=== PATIENT | male | born 1975 | race Hispanic/Latino ===

== ENCOUNTER 2016-05-23 10:15 | Emergency (ER) | payer OTHER ==
[~2016-05-23] VITALS: Ht 193 cm; Wt 145.2 kg
[2016-05-23 10:40] VITALS: BP 140/88
--- NOTE | 2016-05-23 11:19 | ED INFLUENZA/URI COMPLAINT ---
History of Present Illness General Chief Complaint: General Adult Stated Complaint: FEVER,COUGH,CONGESTION,SOB Source: patient, old records Exam Limitations: no limitations Vital Signs & Intake/Output Vital Signs & Intake/Output Vital Signs Date Time Temp Pulse Resp B/P Pulse O2 O2 Flow FiO2 Ox Delivery Rate 05/23 1211 97 Room Air 05/23 1040 97.9 96 18 140/88 99 Room Air Allergies Coded Allergies: codeine (FEELS FUNNY 05/23/16) Reconcile Medications Albuterol Sulfate (Proair Hfa) 90 MCG HFA.AER.AD 2 PUF INH Q4-6 PRN PRN WHEEZING Aspirin (Ecotrin*) 325 MG TABLET.DR 1 TAB PO DAILY HEART HEALTH (Reported) Benzonatate (Tessalon Perle) 100 MG CAPSULE 1 CAP PO TID PRN COUGH Cefuroxime Axetil (Cefuroxime) 500 MG TABLET 1 TAB PO BID ANTIBIOTIC, INFECTION (Reported) Guaifenesin/Codeine Phosphate (Guaifenesin AC Cough Syrup) 100 MG-10 MG/5 ML LIQUID 5 ML PO Q4P PRN COUGH (Reported) Methylprednisolone. (Medrol) 4 MG TAB.DS.PK 1 DP PO AD REACTIVE AIRWAY 6 on day 1 then reduce by one tablet daily until gone Mometasone Furoate (Nasonex) 50 MCG SPRAY.PUMP 2 SPRAY NASB DAILY RHINITIS Multiple Vitamin (Multivitamins) 1 EACH TABLET 1 TAB PO DAILY SUPPLEMENT ( Reported) [place]-3 Fatty Acids/Fish Oil (Fish Oil 1,000 MG Capsule) 340 MG-1,000 MG CAPSULE 2 CAP PO DAILY SUPPLEMENT (Reported) Triage Note: PT COMPLAINSOF 2 WEEKS COUGH PRODUCTIVE OF YELLOW SPUTUM, PT IS ON ABT AT THIS TIME. ALSO COMPLAINS OF HIS EARS BEING CLOGGED AND FEELING LIKE HE IS OFF BALANCE. PT IS VERY ANXIOUS AT TRIAGE. COMPLAINS OF L SIDE ACHE IN HIS CHEST THAT IS INTERMITTANT ONLY WHEN HE COUGHS Triage Nurses Notes Reviewed? yes Onset: Gradual Duration: week(s): (2), better, constant Timing: recent history Severity: mild Severity Numbers: 4 No Modifying Factors: none Associated Symptoms: cough, dizziness, muscle aches, nasal congestion, sore throat HPI: 40-year-old male with no medical history presents to emergency room complaining of a two-week history of a cough of yellow sputum associated with rhinorrhea and congestion sore throat and feeling lightheaded from all of his coughing he states.. he has been on antibiotics and is taking his last dose today without improvement. He denies any associated chest pain however states that at times after coughing he feels as though he can't catch his breath. He does not smoke no history of COPD or asthma. He has not attempted taking any over the counter medications otherwise. There are no modifying factors or associated symptoms otherwise. Past History Travel History Traveled to [place] past 21 day No Medical History Any Pertinent Medical History? see below for history Neurological: NONE EENT: NONE Cardiovascular: hypertension Respiratory: NONE Gastrointestinal: NONE Hepatic: NONE Renal: NONE Musculoskeletal: NONE Psychiatric: NONE Endocrine: NONE Blood Disorders: NONE Cancer(s): NONE PROCESS CONTROLLER/Reproductive: NONE Surgical History Surgical History: non-contributory Psychosocial History What is your primary language Sammarinese Tobacco Use: Never used ETOH Use: denies use Illicit Drug Use: denies illicit drug use Family History Hx Contributory? No Review of Systems Review of Systems Constitutional: Reports: see HPI. All Other Systems: Reviewed and Negative Comments Review of systems: See HPI, All other systems negative. Constitutional, no chills no fever, no malaise HEENT: No visual changes sore throat congestion, no ear pain cardio: no chest pain, no palpitations Skin, no jaundice no rashes, no change in skin Respiratory: No dyspnea cough no sputum no hemoptysis GI: No nausea no vomiting, no diarrhea, no bloating/constipation : No dysuria No hematuria, no frequency, Muscle skeletal: No joint pain, no back pain, no neck pain, Neurologic: no headache Psych: No stress Heme/endocrine: No bruising no bleeding Immunology: No lymphadenopathy Physical Exam Physical Exam General Appearance: well developed/nourished, no apparent distress, alert, awake Ears, Nose, Throat: normal ENT inspection, moist mucous membrane, hearing grossly normal, Tympanic normal, pharynx normal Comments: Well-developed well-nourished person in no acute distress Head/Face: Atraumatic, no maxillary/frontal sinus tenderness, no facial swelling Eyes: PERRL, EOMI, no conjunctival injection. No nystagmus Ear:External auditory canal and Tympanic membranes clear, no erythema, no FB. Nose: atraumatic.Normal inspection: No bleeding, no septal hematoma Throat: Moist mucous membranes.Pharynx normal. No pharyngeal erythema/exudate seen. No stridor/drooling or assymetry. No swelling or edema. Neck: Supple, no lymphadenopathy, FROM Back: Nontender, no CVA tenderness. Full range of motion Cardiovascular: Regular rate and rhythms no murmurs rubs or gallops, normal JVP Respiratory: Chest nontender.There were no bony deformities, no asymmetry. No respiratory distress. Patient speaking in full complete sentences. Breath sounds clear to auscultation bilaterally: NO W/R/R Abdomen: Soft, nontender nondistended, no appreciable organomegaly. Normal bowel sounds. No rebound/guarding, No appreciable enlargement of the abdominal aorta, No ascites. Extremity: No edema, full range of motion of extremities, normal and equal pulses bilaterally, 5 out of 5 strength noted to bilateral upper and lower extremities Neuro: Alert oriented x3, motor sensory normal, cranial nerves II through XII grossly intact. There were no obvious focal neurologic abnormalities. Skin: No appreciable rash on exposed skin, skin is warm and dry. Psych: Mood and affect is normal, memory and judgment is normal. Core Measures Severe Sepsis Present: No Septic Shock Present: No Progress Differential Diagnosis: influenza, otitis, pneumonia, sinusitis, bronchitis, uri Plan of Care: Patient clinically appears well speaking in full complete sentences lungs are clear to auscultation. I discussed with him his chest x-ray findings need for supportive care advised to continue and finish antibiotic course he is currently on folic primary care answer all his questions and feels comfortable with this plan Diagnostic Imaging: Viewed by Me: Radiology Read. Discussed w/RAD: Radiology Read. Radiology Impression: PATIENT: MALACHI ROBERTSON PRESENT AGE: 40 PATIENT ACCOUNT NO: [id number] : 75 LOCATION: [facility] ORDERING PHYSICIAN: ANALILIA BENITES SERVICE DATE: 05/23/16 EXAM TYPE: RAD - XRY- CHEST XRAY, PA AND LATERAL EXAMINATION: XR CHEST CLINICAL INFORMATION: Cough. COMPARISON: None. TECHNIQUE: PA and lateral views of the chest were obtained. FINDINGS: Lungs are well expanded and clear. Cardiomediastinal silhouette has normal size and contour. The trachea is normal in caliber midline in position. No or hilar lymphadenopathy or pleural effusion. The visualized bones are normal. IMPRESSION: No acute cardiopulmonary findings. DICTATED BY: MIKAL BENTON MD DATE/TIME DICTATED:05/23/161202 SEWING INSPECTOR:ARTURO DATE/TIME TRANSCRIBED:05/23/161202 CONFIDENTIAL, DO NOT COPY WITHOUT APPROPRIATE AUTHORIZATION. <Electronically signed in Other Vendor System> SIGNED BY: MIKAL BENTON MD 05/23/16 1208 Initial ED EKG: none Departure Departure Time of Disposition: 1220 Disposition: HOME OR SELF CARE Condition: Stable Clinical Impression Primary Impression: Bronchitis Referrals: PATIENT HAS NO PRIMARY CARE DR (PCP/Family) Additional Instructions: FOLLOW UP WITH PRIMARY CARE PHYSICIAN DR MEADOWS IF SYMPTOMS PERSIST. MEDROL DOSE JANET, PROAIR INHALER AND NASONEX DIRECTED. TESSALON PEARLS FOR COUGH. USE OVER THE COUNTER MUCINEX TO HELP WITH CONGESTION. THESE PRESCRIPTIONS WERE SENT TO [facility] IN [address] Departure Forms: Customer Survey General Discharge Information Prescriptions: Current Visit Scripts Methylprednisolone. (Medrol) 1 DP PO AD #1 DP 6 on day 1 then reduce by one tablet daily until gone Benzonatate (Tessalon Perle) 1 CAP PO TID PRN COUGH #21 CAP Albuterol Sulfate (Proair Hfa) 2 PUF INH Q4-6 PRN PRN WHEEZING #1 INHAL Mometasone Furoate (Nasonex) 2 SPRAY NASB DAILY #1 INHAL
[2016-05-23] MEDS ORDERED: CEFUROXIME500 MG PO (11:44)
[2016-05-23] MEDS ORDERED: GUAIFENESIN AC473 M1 PO (11:44)
[2016-05-23] MEDS ORDERED: MULTIVITAMINS1 EAC9 PO (11:45)
[2016-05-23] MEDS ORDERED: FISH OIL 1,0001 EACH PO (11:45)
[2016-05-23] MEDS ORDERED: ASPIRIN EC325 M2 PO (11:46)
--- NOTE | 2016-05-23 12:08 | RADIOLOGY REPORT ---
EXAMINATION: XR CHEST CLINICAL INFORMATION: Cough. COMPARISON: None. TECHNIQUE: PA and lateral views of the chest were obtained. FINDINGS: Lungs are well expanded and clear. Cardiomediastinal silhouette has normal size and contour. The trachea is normal in caliber midline in position. No or hilar lymphadenopathy or pleural effusion. The visualized bones are normal. IMPRESSION: No acute cardiopulmonary findings.
[2016-05-23] MEDS ORDERED: NASONEX17 GM NASB (12:22)
[2016-05-23] MEDS ORDERED: PROAIR HFA8.5 GM INH (12:22)
[2016-05-23] MEDS ORDERED: TESSALON PERLE100 M1 PO (12:22)
[2016-05-23] MEDS ORDERED: MEDROL4 M2 PO (12:22)
== END 2016-05-23 12:30 ==
LOC: ERH 10:15
DX: J40 Bronchitis, not specified as acute or chronic (principal)